=== PATIENT | female | born 1975 | race Caucasian/White ===

== ENCOUNTER 2019-11-02 14:21 | Outpatient (CLI) | payer OTHER, SELFPAY ==
--- NOTE | ~2019-11-02 | MM_ITS ---
EXAMINATION: MM screening willi BI w elsie HISTORY: Screening mammogram TECHNIQUE: Craniocaudal and mediolateral oblique 3-D tomosynthesis images were obtained and synthetic 2-D images were generated. CAD analysis was submitted and interpreted. COMPARISON: 09/27/2018, 09/24/2017, 09/17/2016 bilateral digital screening mammogram examinations BREAST PARENCHYMAL COMPOSITION: There are scattered areas of fibroglandular density. FINDINGS: There is no evidence of suspicious mass, calcification, or architectural distortion to sugg est malignancy in either breast. There has been no suspicious interval change. IMPRESSION: 1. No mammographic evidence of malignancy. 2. Recommend routine screening mammography in one year. BI-RADS Category 1: Negative Reviewed, dictated and finalized at location A.
== END 2019-11-02 14:22 | disposition home or self-care (01) ==
LOC: ANHIMG 14:25
PROVIDERS: PCP Physician Assistant; Visit Provider Obstetrics & Gynecology
DX: Z12.31 Encounter for screening mammogram for malignant neoplasm of breast (principal)
CPT/HCPCS: 77063; 77067

== ENCOUNTER → 2019-12-20 12:38 | Outpatient (CLI) | payer OTHER, SELFPAY ==
--- NOTE | ~2019-12-20 | US_ITS ---
EXAMINATION: US renal BI EXAM DATE: 12/20/2019 13:04 INDICATION: Serum creatinine raised . TECHNIQUE: Multiple grayscale and Doppler images of the kidneys were obtained (by a technologist who performed the scan) and subsequently reviewed. There is no prior study for comparison. FINDINGS: Right kidney: There is normal contour and echogenicity. It measures 10.0 x 4.2 x 5.3 centimeters. T here are no focal renal lesions identified. There is no hydronephrosis. Left kidney: There is normal contour and echogenicity. It measures 9.4 x 5.4 x 3.7 centimeters. The re are no focal renal lesions identified. There is no hydronephrosis. Bladder unremarkable. Incidental note made of cholelithiasis. IMPRESSION: 1. Sonographically unremarkable kidneys. 2. Cholelithiasis. Reviewed, dictated and finalized at location B. O PRESENTATION OPERATOR
== END ==
PROVIDERS: PCP Physician Assistant; Visit Provider Physician Assistant
DX: R79.89 Other specified abnormal findings of blood chemistry (principal); K80.20 Calculus of gallbladder without cholecystitis without obstruction
CPT/HCPCS: 76775

== ENCOUNTER 2020-09-18 17:49 | Emergency (ER) | payer OTHER, SELFPAY ==
[2020-09-18 17:57] VITALS: BP 149/95; PULSE 86; RESP 16; TEMP 36.8; O2SAT 100
--- NOTE | 2020-09-18 18:37 | ED.GENADULT ---
HPI - General Adult General Chief complaint: Wound/Laceration Stated complaint: lt foot pain Time Seen by Provider: 09/18/20 18:37 Source: patient and RN notes reviewed Mode of arrival: ambulatory Limitations: no limitations and clinical condition History of Present Illness HPI narrative: 45-year-old female presents with complaints of a puncture wound to the left foot with redness, tenderness, and swelling to the area for the past 2 days. Pippa reports stepping on a nail on September 16 and increasing redness and swelling to the left foot. Peroxide and antiseptic soap without relief relief. ?Denies drainage. ?No streaking. ?No numbness or tingling, or loss of mobility. ?Exacerbating factors consist of applying weight and palpation of area. ?Denies fever or chills. ?Denies nausea, vomiting, and abdominal pain. ?Tolerating liquids well. LMP 2 months ago, premenopausal. Remains active. ?Last tetanus unknown will be updated today. ?The patient reports she has not been diagnosed with COVID-19. ?The patient reports she received 2 Pfizer COVID-19 vaccines. ?The patient reports she is not waiting for the results of a COVID-19 lab test. ?The patient reports she does not have weakness, fatigue, or myalgia. ?The patient reports she does not have a new or worsening cough or shortness of breath. ?The patient reports she does not have any rhinorrhea, congestion, loss of taste, sore throat, and diarrhea. ?Denies recent traveling. ?Denies concerns for COVID-19 or exposures. At this time, the patient is not suspected of having COVID-19. Some parts of this dictation were generated by voice recognition software and may contain typographical and/or grammatical inaccuracies. Related Data Home Medications Medication Instructions Recorded Confirmed buspirone 5 mg tablet 5 mg PO BID 11/07/19 11/08/19 cetirizine 10 mg capsule 10 mg PO DAILY 11/07/19 11/08/19 escitalopram oxalate 5 mg tablet 5 mg PO DAILY 11/07/19 11/08/19 famotidine 40 mg tablet 40 mg PO DAILY 11/07/19 11/08/19 Allergies Allergy/AdvReac Type Severity Reaction Status Date / Time naproxen Allergy Unknown Unknown Verified 11/07/19 16:06 Review of Systems Review of Systems: CONSTITUTIONAL: Denies fever, chills, sweats. EYES: Denies visual changes, redness, discharge. ENT: Denies rhinorrhea, congestion, sore throat, otalgia. CARDIOVASCULAR: Denies chest pain, palpitations, edema. RESPIRATORY: Denies dyspnea, wheezing, cough. GASTROINTESTINAL: Denies abdominal pain, nausea, vomiting, diarrhea. SKIN: Complaints of puncture site to LT foot with redness, tenderness, and swelling. Denies drainage. MUSCULOSKELETAL: Denies acute back pain, joint pain, or myalgia. NEUROLOGIC: Denies numbness or focal weakness. PSYCHIATRIC: Denies anxiety or depression. All other systems reviewed & are unremarkable except as noted in HPI and below. [facility] Past Medical History Medical History (Updated 09/19/20 @ 00:01 by Daniella Francois) Anxiety Depression History of gastroesophageal reflux (GERD) Surgical History Surgical History History of dilation and curettage Hx of tonsillectomy Previous section x 2 Family History Family History Father Hypertension Family history of elevated blood lipids Family history of diabetes mellitus in first degree relative Mother Hypertension Grandparent Family history of malignant neoplasm of male breast, Onset Age: 86 Family history of coronary artery disease, Onset Age: 86 Diabetes mellitus Other Cerebrovascular accident Social History Social History (Updated 09/18/20 @ 18:52 by TUAN Jansen) Smoking status: Former smoker Tobacco type: cigarettes Second hand tobacco smoke exposure: No Alcohol intake: current Substance use: never Substance use type: does not use Living arrangements: with famil
[2020-09-18] MEDS: TETANUS,DIPHTHERIA,AC PERTUSSIS ADULT (0.5 ML) BOOSTRIX IM (18:51)
== END 2020-09-18 19:01 | disposition home or self-care (01) ==
PROVIDERS: Emergency Provider Nurse Practitioner Family; PCP Physician Assistant
DX: L08.9 Local infection of the skin and subcutaneous tissue, unspecified (principal); S91.332A Puncture wound without foreign body, left foot, initial encounter; W45.0XXA Nail entering through skin, initial encounter; Z23 Encounter for immunization; F41.9 Anxiety disorder, unspecified; F32.9 Major depressive disorder, single episode, unspecified; K21.9 Gastro-esophageal reflux disease without esophagitis; Z87.891 Personal history of nicotine dependence
CPT/HCPCS: 90471; 90715; 99213; G0463

== ENCOUNTER 2020-09-29 10:55 | Emergency (ER) | payer OTHER, SELFPAY ==
[2020-09-29 11:01] VITALS: BP 147/94; PULSE 76; RESP 16; TEMP 36.7; O2SAT 100
--- NOTE | 2020-09-29 11:41 | ED.SKABFB ---
HPI - Skin/Abscess/Foreign Bdy General Chief complaint: Wound/Laceration Stated complaint: wasp sting Time Seen by Provider: 09/29/20 11:20 Source: patient, RN notes reviewed and old records reviewed Mode of arrival: ambulatory Limitations: no limitations History of Present Illness HPI narrative: 45 year old female who presents to express care with complaints of wasp sting which happened yesterday to her left dorsal index finger with noted swelling from index and 2nd finger into the dorsal aspect of her left hand. with discomfort and itching. Patient states that se has a burning sensation and itching to her hand and has been using ice and Benadryl orally and topically to her left hand for the itching. Patient reports that her hand feels tight from the swelling but has full ROM noted with strong left radial pulse present. MD complaint: insect bite/sting Onset (ago): day(s) (1) Location: L hand Severity: moderate Severity scale (1-10): 7 Quality: burning, pruritic and other (swelling) Related Data Home Medications Medication Instructions Recorded Confirmed cetirizine 10 mg capsule 10 mg PO DAILY 11/07/19 09/29/20 escitalopram oxalate 5 mg tablet 5 mg PO DAILY 11/07/19 09/29/20 famotidine 40 mg tablet 40 mg PO DAILY 11/07/19 09/29/20 atorvastatin 20 mg PO DAILY 09/29/20 09/29/20 Allergies Allergy/AdvReac Type Severity Reaction Status Date / Time naproxen Allergy Unknown Unknown Verified 09/29/20 11:02 Review of Systems Review of Systems: CONSTITUTIONAL: Denies fever, chills, or sweats. EYES: Denies visual changes, redness, or discharge. ENT: Denies rhinorrhea, congestion, sore throat, or otalgia. CARDIOVASCULAR: Denies chest pain, palpitations, or edema. RESPIRATORY: Denies cough or dyspnea. GASTROINTESTINAL: Denies abdominal pain, nausea, vomiting, or diarrhea. GENITOURINARY: Denies dysuria or hematuria. SKIN:Positive for swelling and redness to dorsal left hand and left index finger with itching. MUSCULOSKELETAL: Denies back pain, joint pain, or myalgia. NEUROLOGIC: Denies headache, numbness, or weakness. PSYCHIATRIC: Positive history of anxiety or depression. All systems reviewed & are unremarkable except as noted in HPI and below PMFSH Past Medical History Medical History Anxiety Depression History of gastroesophageal reflux (GERD) Surgical History Surgical History History of dilation and curettage Hx of tonsillectomy Previous section x 2 Family History Family History Father Hypertension Family history of elevated blood lipids Family history of diabetes mellitus in first degree relative Mother Hypertension Grandparent Family history of malignant neoplasm of male breast, Onset Age: 86 Family history of coronary artery disease, Onset Age: 86 Diabetes mellitus Other Cerebrovascular accident Social History Social History Smoking status: Former smoker Tobacco type: cigarettes Second hand tobacco smoke exposure: No Alcohol intake: current Substance use: never Substance use type: does not use Gender identity (if verbalized by the patient): Female Comments At time of signature, agree with nursing past medical, surgical, social and family history. There is no relevant family history pertinent to the presenting complaint Exam Narrative: GENERAL: Well-appearing, well-nourished, and in no acute distress. HEAD: Normocephalic, atraumatic. EYES: PERRLA and EOMI. ENT: Nares clear, no rhinorrhea or epistaxis. Mucous membranes moist. NECK: Supple. no lymphadenopathy CHEST: Clear to auscultation. No respiratory distress. SaO2 100% HEART: Regular rate and rhythm. No murmur heard. Normal peripheral pulses. ABDOMEN: Soft, nontender, nondistended, normal active bowel
== END 2020-09-29 12:00 | disposition home or self-care (01) ==
PROVIDERS: Emergency Provider Registered Nurse; PCP Physician Assistant
DX: T63.461A Toxic effect of venom of wasps, accidental (unintentional), initial encounter (principal); F41.9 Anxiety disorder, unspecified; F32.9 Major depressive disorder, single episode, unspecified; K21.9 Gastro-esophageal reflux disease without esophagitis; Z87.891 Personal history of nicotine dependence
CPT/HCPCS: 99213; G0463

== ENCOUNTER 2020-12-24 16:24 | Emergency (ER) | payer OTHER, SELFPAY ==
--- NOTE | ~2020-12-24 | XR_ITS ---
XR foot LT min 3V 12/24/2020 16:40 INDICATION: Left foot pain PROCEDURE: 4 views left foot COMPARISON: No prior studies for comparison. FINDINGS: Fracture, dislocation or subluxation is not identified. Lisfranc joint intact. The soft tis sues appear within normal limits. No foreign bodies are identified. IMPRESSION: 1: NO ACUTE BONE OR JOINT ABNORMALITY IDENTIFIED. Reviewed, dictated and finalized at location A. VIORAL MEDICAL DIRECTOR
--- NOTE | 2020-12-24 16:26 | ED.LOWEXIN ---
HPI - Extremity Injury (Lower) General Chief Complaint: Extremity Injury, Lower Stated Complaint: lt foot pain Time Seen by Provider: 12/24/20 16:26 Source: patient, RN notes reviewed and old records reviewed Mode of arrival: ambulatory Limitations: no limitations History of Present Illness HPI Narrative: 45-year-old female presents to the [facility] with complaints of left great toe pain since Thursday, 2 days. No treatment prior to arrival. Patient reports wearing a slide on, newer pair of shoes on Thursday. Reports swelling. No bruising, redness or signs of infection noted. full range of motion with sensation intact Shoes on Thursday and the pain started on Thursday. Related Data Home Medications Medication Instructions Recorded Confirmed cetirizine 10 mg capsule 10 mg PO DAILY 11/07/19 12/24/20 escitalopram oxalate 5 mg tablet 5 mg PO DAILY 11/07/19 12/24/20 famotidine 40 mg tablet 40 mg PO DAILY 11/07/19 12/24/20 atorvastatin 20 mg PO DAILY 09/29/20 12/24/20 Allergies Allergy/AdvReac Type Severity Reaction Status Date / Time naproxen Allergy Unknown Unknown Verified 11/19/20 14:49 Review of Systems Review of Systems: All systems reviewed & are unremarkable except as noted in HPI and below Constitutional: Constitutional: Reports no additional constitutional complaints ENT: Reports system reviewed and no additional complaints, except as documented Cardiovascular: Cardiovascular: Reports no additional cardiovascular complaints Respiratory: Respiratory: Reports no additional respiratory complaints Musculoskeletal: Musculoskeletal: Reports as per HPI Comments: Left great toe pain Integumentary/Breasts: Skin/Breast: Reports system reviewed and no additional complaints, except as docu Neurologic: Reports system reviewed and no additional complaints, except as documented Psychiatric: Psychiatric: Reports no additional psychiatric complaints Allergic/Immunologic: Allergic/Immunologic: Reports no additional allergic/immunologic complaints PMFSH Past Medical History Medical History Anxiety Depression History of gastroesophageal reflux (GERD) Surgical History Surgical History History of dilation and curettage Hx of tonsillectomy Previous section x 2 Family History Family History Father Hypertension Family history of elevated blood lipids Family history of diabetes mellitus in first degree relative Mother Hypertension Grandparent Family history of malignant neoplasm of male breast, Onset Age: 86 Family history of coronary artery disease, Onset Age: 86 Diabetes mellitus Other Cerebrovascular accident Social History Social History Smoking status: Former smoker Tobacco type: cigarettes Second hand tobacco smoke exposure: No Alcohol intake: current Substance use: never Substance use type: does not use Gender identity (if verbalized by the patient): Female Sexual Orientation (if Verbalized by the Patient): Straight or Heterosexual Comments At the time of my signature, I reviewed and agree with the nursing past medical, surgical, social, and family history. There is no relevant family history pertinent to the patient complaint. Exam Const: General: healthy appearing, no acute distress and alert Nutritional Appearance: well nourished and obese Orientation/consciousness: patient oriented x3 Limitations: no limitations HENMT: Head: normal to inspection Eyes: Pupils: Equal, round and reactive pupils present Neck: Neck: normal visual inspection, no lymphadenopathy and no meningeal signs Chest: Chest palpation & inspection: normal inspection of the chest Resp: Effort & Inspection: normal respiratory effort Auscultation: clear to auscultation bilaterally Cardio:
[2020-12-24 16:31] VITALS: BP 160/90; PULSE 93; RESP 16; TEMP 37.1; O2SAT 100
[2020-12-24 16:34] VITALS: BP 160/90; PULSE 93; RESP 16; TEMP 37.1; O2SAT 100
== END 2020-12-24 17:04 | disposition home or self-care (01) ==
PROVIDERS: Emergency Provider Nurse Practitioner; PCP Physician Assistant
DX: M79.675 Pain in left toe(s) (principal); Z87.891 Personal history of nicotine dependence; K21.9 Gastro-esophageal reflux disease without esophagitis; F41.9 Anxiety disorder, unspecified; F32.9 Major depressive disorder, single episode, unspecified
CPT/HCPCS: 73630; 99213; G0463

== ENCOUNTER 2021-09-13 08:50 | Outpatient (CLI) | payer OTHER, SELFPAY ==
--- NOTE | ~2021-09-13 | MM_ITS ---
EXAMINATION: MM screening willi BI w elsie HISTORY: Screening mammogram TECHNIQUE: Craniocaudal and mediolateral oblique 3-D tomosynthesis images were obtained and synthetic 2-D images were generated. CAD analysis was submitted and interpreted. COMPARISON: 11/02/2019, 09/27/2018, 09/24/2017 bilateral screening mammogram examinations BREAST PARENCHYMAL COMPOSITION: The breasts are almost entirely fatty. FINDINGS: Stable circumscribed benign-appearing upper outer quadrant left intramammary lymph node. Th ere is no evidence of suspicious mass, calcification, or architectural distortion to suggest malignan cy in either breast. There has been no suspicious interval change. IMPRESSION: 1. No mammographic evidence of malignancy. 2. Recommend routine screening mammography in one year. BI-RADS Category 2: Benign finding(s). Reviewed, dictated and finalized at location B.
== END 2021-09-13 08:51 | disposition home or self-care (01) ==
LOC: ANHIMG 08:56
PROVIDERS: PCP Physician Assistant; Visit Provider Obstetrics & Gynecology
DX: Z12.31 Encounter for screening mammogram for malignant neoplasm of breast (principal)
CPT/HCPCS: 77063; 77067

== ENCOUNTER 2023-05-04 13:07 | Outpatient (CLI) | payer OTHER, SELFPAY ==
--- NOTE | ~2023-05-04 | MM_ITS ---
EXAMINATION: MM screening willi BI w elsie HISTORY: Screening TECHNIQUE: Craniocaudal and mediolateral oblique 3-D tomosynthesis images were obtained and synthetic 2-D images were generated. CAD analysis was submitted and interpreted. COMPARISON: No prior mammogram is available for comparison at this institution. BREAST PARENCHYMAL COMPOSITION: Not Dense: Breast are almost entirely fatty. FINDINGS: There is no evidence of suspicious mass, calcification, or architectural distortion to sugg est malignancy in either breast. There has been no suspicious interval change. IMPRESSION: 1. No mammographic evidence of malignancy. 2. Recommend routine screening mammography in one year. BI-RADS Category 1: Negative Reviewed, dictated and finalized at location A.
== END 2023-05-04 13:08 | disposition home or self-care (01) ==
LOC: ANHIMG 13:10
PROVIDERS: PCP Physician Assistant; Visit Provider Obstetrics & Gynecology
DX: Z12.31 Encounter for screening mammogram for malignant neoplasm of breast (principal)
CPT/HCPCS: 77063; 77067

== ENCOUNTER 2023-08-26 12:58 | Outpatient (CLI) | payer OTHER, SELFPAY ==
--- NOTE | ~2023-08-26 | US_ITS ---
EXAMINATION: US pelvic complete w TV DATE: 08/26/2023 14:10 INDICATION: Postmenopausal bleeding. TECHNIQUE: Multiple transabdominal and transvaginal sonographic images of the pelvis were obtained. COMPARISON: Pelvis ultrasound 05/22/2014 FINDINGS: TRANSABDOMINAL ULTRASOUND: The uterus measures 9.8 x 4.9 x 4.5 cm. There is no free fluid in the pelvis. TRANSVAGINAL ULTRASOUND: The endometrial complex measures 7 mm in thickness. There are nabothian cysts in the cervix. The righ t ovary measures 3.0 x 2.3 x 2.3 cm. The left ovary is not visualized. IMPRESSION: 1. Thickened endometrial complex. The differential diagnosis includes endometrial hyperplasia, polyp, and carcinoma. Consider biopsy. Reviewed, dictated and finalized at location E. IMPRESSION: 1. Thickened endometrial complex. The differential diagnosis includes endometri al hyperplasia, polyp, and carcinoma. Consider biopsy.
== END 2023-08-26 12:59 | disposition home or self-care (01) ==
PROVIDERS: PCP Physician Assistant; Visit Provider Obstetrics & Gynecology
DX: N95.0 Postmenopausal bleeding (principal)
CPT/HCPCS: 76830; 76856

== ENCOUNTER 2023-10-30 08:12 | Outpatient (CLI) | payer OTHER, SELFPAY ==
--- NOTE | 2023-10-30 | EST_ITS ---
Patient Info Name: Pippa Prabhakar Age: 48 years : 1975 Gender: Female Ht: 63 in Wt: 240 lbs BSA: 2.26 m2 HR: 79 bpm BP: 117 / 64 mmHg Exam Date: 10/30/2023 10:00 AM Exam Location: Echo Lab Patient Status: Outpatient Admit Date: 10/30/2023 Staff Ordering Physician: CathyIrene PA-C Attending Provider: CathyIrene PA-C Exercise Technologist: Heena Callaway RDCS Nurse: Susanne Pappas APN Exam Type: CA stress test treadmill Study Info A treadmill exercise stress test was performed. Summary 1. Sinus rhythm with low QRS voltage. 2. No ischemic ST or T-wave abnormalities noted. 3. Graded exercise test to 85% of age predicted maximum heart rate clinically and electrocardiographically negative. 4. Average functional capacity. Protocol: Jose Stress ECG Details Stage: REST Duration (min): 1 min : 46 sec Speed (mph): 0.0 Grade (%): 0 HR (bpm): 81 SBP (mmHg): 117 DBP (mmHg): 64 METS: --- Stage: REST Duration (min): 12 min : 40 sec Speed (mph): 0.0 Grade (%): 0 HR (bpm): 81 SBP (mmHg): 117 DBP (mmHg): 64 METS: --- Stage: STAGE 1 Duration (min): 1 min : 0 sec Speed (mph): 1.7 Grade (%): 10 HR (bpm): 110 SBP (mmHg): 117 DBP (mmHg): 64 METS: --- Stage: STAGE 1 Duration (min): 2 min : 0 sec Speed (mph): 1.7 Grade (%): 10 HR (bpm): 117 SBP (mmHg): 117 DBP (mmHg): 64 METS: --- Stage: STAGE 1 Duration (min): 3 min : 0 sec Speed (mph): 1.7 Grade (%): 10 HR (bpm): 119 SBP (mmHg): 123 DBP (mmHg): 69 METS: --- Stage: STAGE 2 Duration (min): 1 min : 0 sec Speed (mph): 2.5 Grade (%): 12 HR (bpm): 124 SBP (mmHg): 123 DBP (mmHg): 69 METS: --- Stage: STAGE 2 Duration (min): 2 min : 0 sec Speed (mph): 2.5 Grade (%): 12 HR (bpm): 130 SBP (mmHg): 144 DBP (mmHg): 76 METS: --- Stage: STAGE 2 Duration (min): 3 min : 0 sec Speed (mph): 2.5 Grade (%): 12 HR (bpm): 129 SBP (mmHg): 144 DBP (mmHg): 76 METS: --- Stage: STAGE 3 Duration (min): 1 min : 0 sec Speed (mph): 3.4 Grade (%): 14 HR (bpm): 143 SBP (mmHg): 144 DBP (mmHg): 76 METS: --- Stage: STAGE 3 Duration (min): 1 min : 49 sec Speed (mph): 0.0 Grade (%): 0 HR (bpm): 136 SBP (mmHg): 144 DBP (mmHg): 76 METS: --- Stage: RECOVERY Duration (min): 0 min : 10 sec Speed (mph): 0.0 Grade (%): 0 HR (bpm): 130 SBP (mmHg): 144 DBP (mmHg): 76 METS: --- Stage: RECOVERY Duration (min): 1 min : 10 sec Speed (mph): 0.0 Grade (%): 0 HR (bpm): 100 SBP (mmHg): 129 DBP (mmHg): 63 METS: --- Stage: RECOVERY Duration (min): 2 min : 10 sec Speed (mph): 0.0 Grade (%): 0 HR (bpm): 93 SBP (mmHg): 129 DBP (mmHg): 63 METS: --- Stage: RECOVERY Duration (min): 3 min : 10 sec Speed (mph): 0.0 Grade (%): 0 HR (bpm): 89
--- NOTE | 2023-10-30 | ECHO_ITS ---
Patient Info Name: Pippa Prabhakar Age: 48 years : 1975 Gender: Female Ht: 63 in Wt: 240 lbs BSA: 2.26 m2 HR: 77 bpm BP: 140 / 97 mmHg Technical Quality: Fair Exam Date: 10/30/2023 8:54 AM Exam Location: Echo Lab Patient Status: Outpatient Admit Date: 10/30/2023 Staff Ordering Physician: CathyIrene PA-C Barrel Tester And Drainer: Indira Durbin RDCS Attending Provider: CathyIrene PA-C Exam Type: CA echo doppler color flow Study Info Indications R06.09 - Other forms of dyspnea Complete two-dimensional, color flow and Doppler transthoracic echocardiogram is performed. Strain analysis performed. Summary 1. Complete two-dimensional, color flow and Doppler transthoracic echocardiogram is performed. 2. Left ventricular chamber dimension is normal. 3. Left ventricular systolic function is normal, estimated at 60-65%. 4. The left ventricular diastolic function is grade II diastolic dysfunction. 5. E/e' 8 is minimally elevated. 6. Global longitudinal strain is abnormal at -15.4%. 7. There is trace tricuspid valve regurgitation. 8. No pulmonary hypertension, estimated pulmonary arterial systolic pressure is 32 mmHg. Left Ventricle E/e' 8 is minimally elevated. Global longitudinal strain is abnormal at -15.4%. Left ventricular chamber dimension is normal. Left ventricular systolic function is normal, estimated at 60-65%. The left ventricular diastolic function is grade II diastolic dysfunction. Right Ventricle Right ventricular systolic function is normal and with normal TAPSE 1.9 cm. Right ventricular chamber dimension is normal. Left Atria Left atrial chamber dimension is normal. Right Atria Right atrial chamber dimension is normal. Aortic Valve The aortic valve is trileaflet. There is no aortic valve stenosis. There is no aortic valve regurgitation. Pulmonic Valve There is no pulmonic regurgitation. Mitral Valve There is no mitral valve stenosis. There is no mitral valve regurgitation. Tricuspid Valve There is trace tricuspid valve regurgitation. No pulmonary hypertension, estimated pulmonary arterial systolic pressure is 32 mmHg. Pericardium/Pleural There is no pericardial effusion. Inferior Vena Cava Normal inferior vena cava with >50% collapse upon inspiration consistent with normal right atrial pressure, 5 mmHg. Aorta The aortic root size at the sinus of Valsalva is normal. Left Ventricular Outflow Tract Name Value Normal LVOT 2D LVOT Diameter 1.9 cm LVOT Doppler LVOT Peak Gradient 5 mmHg LVOT Mean Gradient 3 mmHg LVOT VTI 22 cm LVOT VTI/AV VTI Ratio 0.9 LVOT Stroke Volume 64 ml LVOT CO 5.2 l/min LVOT CI 2.3 l/min/m2 Pulmonic Valve Name Value Normal RVOT Doppler RVOT Peak Gradient 2 mmHg
--- NOTE | ~2023-10-30 | XR_ITS ---
EXAMINATION: XR chest 2V DATE: 10/30/2023 09:29 INDICATION: Shortness of breath. Hypertension. TECHNIQUE: PA and lateral views of the chest were obtained. COMPARISON: None FINDINGS: The lungs are clear with no focal airspace opacities, pulmonary edema, pleural effusion or pneumothor ax. The cardiomediastinal silhouette is normal. Visualized bones and soft tissues are unremarkable. IMPRESSION: 1. Normal chest radiograph. Reviewed, dictated and finalized at location B. IMPRESSION: 1. Normal chest radiograph.
== END 2023-10-30 08:13 | disposition home or self-care (01) ==
PROVIDERS: PCP Physician Assistant; Visit Provider Physician Assistant
DX: R06.09 Other forms of dyspnea (principal)
CPT/HCPCS: 71046; 93017; 93306

== ENCOUNTER 2023-11-30 09:16 | Outpatient (CLI) | payer OTHER, SELFPAY ==
--- NOTE | 2023-12-23 12:11 | P.SLEEP_ITS ---
Sleep Study - Home Unattended Date of Study: 11/30/23 Ordering Provider: Irene Morgan, PACindy Interpreting Provider: Minnie Spencer, DO Home Sleep Study Type: Watch PAT Height: 1.6 m Weight: 111.13 kg Body Mass Index: 43.4 Neck Circumference (inches): 15.5 [place]: 11 Reason for Sleep Study Snoring, daytime hypersomnia Sleep History The patient is a 48-year-old female that had a sleep study ordered by her [facility] for evaluation of sleep apnea. The patient admits to loud snoring, excessive daytime sleepiness and trouble maintaining sleep. The patient denies having disruptions and breathing while asleep. She denies choking gasping while asleep. She does admit to having trouble breathing on her back. She does admit to waking up in the morning with headache. She does admit to having a dry or sore mouth/ throat in the morning. She denies nocturnal heartburn. She admits to urinating twice per night. She denies having difficulty falling asleep. She denies having difficulty returning to sleep if she wakes up during the night. She denies waking up too early without alarm. She does use a hypnotic or sedative. She denies feeling anxious about sleep. She does feel tired or fatigued during the day. She does feel unrefreshed in the morning. She does have the urge to fall asleep during the day. She does feel drowsy while driving. She denies sleep paralysis, cataplexy and hypnagogic / hypnopompic hallucinations. She admits to clenching or grinding her teeth during the night. She does admit to kicking or jerking her legs excessively at night. She does have a restless feelings in her legs that improves with activity but gets worse with rest. The rest was feeling is accompanied by the urge to move her legs. The restless feeling only occurs in the evening or the night. She goes to bed at 9:00 p.m. on work days and at 10:30 p.m. on the weekends. It takes her 30 minutes to fall asleep on weekdays and 45 minutes to fall asleep on the weekends. She typically gets 10 hours of sleep per night. She states her sleep is much more restorative on her days off. She denies taking any plan naps. She states that she does act out her dreams or has violent dreaming. She denies sleep walking as an adult or as a child. She consumes 1-2 caffeinated beverages per day. She consumes 1 glass of an alcoholic beverage 1-2 nights per week. She denies exercising on a regular basis. She denies tobacco use. PMFSH Past Medical History Medical History Anxiety Depression History of gastroesophageal reflux (GERD) Surgical History Surgical History History of dilation and curettage Hx of tonsillectomy Previous section x 2 Family History Family History Father Hypertension Family history of elevated blood lipids Family history of diabetes mellitus in first degree relative Mother Hypertension Grandparent Family history of malignant neoplasm of male breast, Onset Age: 86 Family history of coronary artery disease, Onset Age: 86 Diabetes mellitus Other Cerebrovascular accident Social History Social History Smoking status: Former smoker Tobacco type: cigarettes Second hand tobacco smoke exposure: No Alcohol intake: current Substance use: never Substance use type: does not use Do You Feel Safe in your Home?: Yes Lack of Transportation: No Lack of Food: Never True Current Housing: I Have Housing Concerned About Future Housing: No Difficulty Paying Gas/Electric Bills: No Difficulty Paying for Meds: No Currently Unemployed: No Education: Bachelor's Degree Difficulty w/ Childcare or Family Care: No Living arrangements: with family Occupation/Education: occupation Gender identity (if verbalized by the patient): Female Sexual Orientation (if Verbalized by the Patient): Straight or Heterosexual Medications Home Medications Medication Instructions Recorded Confirmed Type cetirizine 10 mg capsule (Zyrtec) 10 mg PO DAILY 11/07/19 09/01/23 History escitalopram oxalate 5 mg tablet 5 mg PO DAILY 11/07/19 09/01/23 History (Lexapro) famotidine 40 mg tablet 40 mg PO DAILY 09/21/20 07/16/24 History atorvastatin 20 mg tablet 20 mg PO DAILY 09/29/20 09/01/23 History conjugated estrogens 0.625 mg/gram 0.625 mg vaginal 2XW #30 grams 04/07/23 09/01/23 Rx vaginal cream (Premarin) progesterone micronized 100 mg 100 mg PO QHS #90 caps 09/28/23 Rx capsule Sleep Procedure The sleep study was completed using MyParichayPAT a technically adequate device with seven channels: peripheral arterial tone, actigraphy, body position, snore, respiratory movement, pulse oximetry, sleep staging, and heart rate. Prior to using the device, the patient received verbal and written instructions for its application and was provided with the help desk phone number for additional telephonic instruction with 24-hour availability of qualified personnel to answer questions. The study was scored using CMS guidelines. Sleep Architecture The total recording time is 9 hrs, 59 min. The total sleep time is 8 hrs, 50 min. Sleep latency is 21 minutes. REM latency is 108 minutes. The patient had 14 episodes of waking. Sleep architecture shows 13.8% deep sleep, 59.7% light sleep, and (as % Total Sleep Time) showed NREM (Light 59.7%; Deep 13.8%), and a 26.6% stage REM. The patient spent 51.1% of total sleep time in the supine position. Sleep efficiency was 88.48. Respiratory Analysis The overall AHI (pAHI 4%:) is 26.7. The central AHI is 7.9. The AHI was 19.0 in NREM and 48.0 in REM sleep. The AHI was 29.9 in Supine and 23.3 in Non-supine sleep. Percent of Jeff Thomas respirations is 0.0. Oximetry Data The oxygen desaturation index (DAVE 4%:) is 26.4. The mean saturation is 94%, and the lowest saturation is 75%. Time spent with saturation < 88% is 6.3 minutes. Snoring Profile Snoring average intensity is 46 dB. The patient snored above 45 decibels for 197.1 minutes, 37.2% of sleep time. Cardiac Profile The average pulse rate is 77 beats per minutes. The lowest pulse rate is 61 bpm. The highest pulse rate reported is 122 bpm. Atrial fibrillation was not detected. Premature beats occur <0.1 per minute. Assessment and Plan Assessment and Plan (1) SHARIF (obstructive sleep apnea): Code(s): G47.33 - Obstructive sleep apnea (adult) (pediatric) Status: Acute Assessment and Plan: The patient had an overall AHI of 26.7 with desaturation down to 75%. This is consistent with moderate sleep apnea. The patient had a central apnea index of 7.9, which is elevated (normal < 5). The patient's elevated central apnea index, she is not a candidate for auto PAP. AutoPAP can increase the frequency and severity central apneas. I recommend that the patient have a CPAP titration study with the use of a hypnotic (Lunesta 2-3 mg or Ambien 5-10 mg) to ensure we obtain enough sleep data and find an optimal pressure. The patient had an echocardiogram done in October 2023 that showed a normal ejection fraction. No further cardiac workup is needed for the evaluation of her elevated central apnea index. The patient mentioned in her sleep history that she acts on her dreams. The patient needs to be evaluated further for dream enactment behavior. (2) Restless legs syndrome: Code(s): G25.81 - Restless legs syndrome Status: Acute Assessment and Plan: The patient's sleep history is somewhat suggestive of Restless Leg Syndrome. I recommend that the patient have a serum ferritin drawn for evaluation of iron deficiency anemia. If the patient has a serum ferritin less than 75 ng/mL, I recommend starting a daily iron supplement and a Vitamin C supplement for better absorption. If the serum ferritin is greater than 75 ng/mL, I recommend starting a dopamine agonist and titrating the dose until symptoms resolve. There are nonpharmacological methods to treat limb movements including daily exercise, stretching calf muscles before bed, avoiding excessive amounts of caffeine and alcohol, vitamin B supplementation, magnesium lotion massaged into legs before bed, and use of a weighted blanket. Data The data obtained during this sleep study is adequate for interpretation. Certification This sleep study has been reviewed by a board certified sleep medicine alicja acuna.
[2023-12-23 12:12] VITALS: BMI 43.4
== END 2023-12-01 14:49 | disposition home or self-care (01) ==
LOC: ANHCSM 09:17
PROVIDERS: PCP Physician Assistant; Visit Provider Physician Assistant
DX: G47.30 Sleep apnea, unspecified (principal); G47.33 Obstructive sleep apnea (adult) (pediatric); G25.81 Restless legs syndrome
CPT/HCPCS: 95800

== ENCOUNTER 2024-02-12 09:12 | Outpatient (CLI) | payer OTHER, SELFPAY ==
--- NOTE | 2024-03-08 13:17 | P.SLEEP_ITS ---
Sleep Study Date of Study: 02/12/24 Ordering Provider: rIene Morgan, ALCIRA Interpreting Physician: Minnie Spencer DO Sleep Study Type: CPAP Titration Height: 1.6 m Weight: 111.13 kg Body Mass Index: 43.4 Neck Circumference (inches): 15.5 [place]: 11 Reason for Sleep Study WatchPAT home sleep test on 11/30/2023 showed overall AHI of 26.7 with desaturation down to 75%. Central apnea index of 7.9. Sleep History The patient is a 48-year-old female that had a sleep study ordered by her primary care for evaluation of sleep apnea. The patient admits to loud snoring, excessive daytime sleepiness and trouble maintaining sleep. The patient denies having disruptions and breathing while asleep. She denies choking gasping while asleep. She does admit to having trouble breathing on her back. She does admit to waking up in the morning with headache. She does admit to having a dry or sore mouth/ throat in the morning. She denies nocturnal heartburn. She admits to urinating twice per night. She denies having difficulty falling asleep. She denies having difficulty returning to sleep if she wakes up during the night. She denies waking up too early without alarm. She does use a hypnotic or sedative. She denies feeling anxious about sleep. She does feel tired or fatigued during the day. She does feel unrefreshed in the morning. She does have the urge to fall asleep during the day. She does feel drowsy while driving. She denies sleep paralysis, cataplexy and hypnagogic / hypnopompic hallucinations. She admits to clenching or grinding her teeth during the night. She does admit to kicking or jerking her legs excessively at night. She does have a restless feelings in her legs that improves with activity but gets worse with rest. The rest was feeling is accompanied by the urge to move her legs. The restless feeling only occurs in the evening or the night. She goes to bed at 9:00 p.m. on work days and at 10:30 p.m. on the weekends. It takes her 30 minutes to fall asleep on weekdays and 45 minutes to fall asleep on the weekends. She typically gets 10 hours of sleep per night. She states her sleep is much more restorative on her days off. She denies taking any plan naps. She states that she does act out her dreams or has violent dreaming. She denies sleep walking as an adult or as a child. She consumes 1-2 caffeinated beverages per day. She consumes 1 glass of an alcoholic beverage 1-2 nights per week. She denies exercising on a regular basis. She denies tobacco use. PMFSH Past Medical History Medical History Depression History of gastroesophageal reflux (GERD) Anxiety Surgical History Surgical History Hx of tonsillectomy History of dilation and curettage Previous section x 2 Family History Family History Father Hypertension Family history of elevated blood lipids Family history of diabetes mellitus in first degree relative Mother Hypertension Grandparent Family history of malignant neoplasm of male breast, Onset Age: 86 Family history of coronary artery disease, Onset Age: 86 Diabetes mellitus Other Cerebrovascular accident Social History Social History Smoking status: Former smoker Tobacco type: cigarettes Second hand tobacco smoke exposure: No Alcohol intake: current Substance use: never Substance use type: does not use Do You Feel Safe in your Home?: Yes Lack of Transportation: No Lack of Food: Never True Current Housing: I Have Housing Concerned About Future Housing: No Difficulty Paying Gas/Electric Bills: No Difficulty Paying for Meds: No Currently Unemployed: No Education: Bachelor's Degree Difficulty w/ Childcare or Family Care: No Living arrangements: with family Occupation/Education: occupation Gender identity (if verbalized by the patient): Female Sexual Orientation (if Verbalized by the Patient): Straight or Heterosexual Medications Home Medications ?Medication ?Instructions ?Recorded ?Confirmed ?Type cetirizine 10 mg capsule (Zyrtec) 10 mg PO DAILY 11/07/19 09/01/23 History escitalopram oxalate 5 mg tablet 5 mg PO DAILY 11/07/19 09/01/23 History (Lexapro) famotidine 40 mg tablet 40 mg PO DAILY 11/07/19 09/01/23 History atorvastatin 20 mg tablet 20 mg PO DAILY 09/29/20 09/01/23 History conjugated estrogens 0.625 mg/gram 0.625 mg vaginal 2XW #30 grams 04/07/23 09/01/23 Rx vaginal cream (Premarin) progesterone micronized 100 mg 100 mg PO QHS #90 caps 09/28/23 Rx capsule Sleep Procedure A full night CPAP Titration using the [employer] multi-channel system recorded the standard physiologic parameters including EEG, EOG, submentalis EMG, anterior tibialis EMG, EKG, body position, nasal and oral airflow using nasal pressure sensor and thermistor.? Respiratory parameters of chest and abdominal movements were recorded with Respiratory Inductance Plethysmography belts. Oxygen saturation was recorded by pulse oximetry. Video monitoring was also performed. Sleep stages, periodic limb movements, and EEG arousals were scored in 30 second epochs according to the criteria of the AASM Scoring Manual. The Apnea-Hypopnea Index was calculated using CMS guidelines for definition of hypopnea with 4% O2 desaturations while scoring respiratory events. Sleep Architecture The total recording time was 489.2 minutes.? The total sleep time was 341.5 minutes. Sleep latency was 40.5 minutes. REM latency was 401.0 minutes. Sleep efficiency was 69.8%. The patient had 34 awakenings for an awakening index of 6.0. Wake after Sleep Onset time was 105.5 minutes. The patient spent 25.0 minutes, 7.3% of total sleep time in Stage N1. The patient spent 204.5 minutes, 59.9% in Stage N2. The patient spent 71.0 minutes, 20.8% in Stage N3. The patien t spent 41.0 minutes, 12.0% in Stage REM. Respiratory Analysis The patient had 14 hypopneas, - obstructive apneas, 1 mixed apneas, and 1 central apneas for an overall Apnea Hypopnea Index of 2.8 events per hour. The REM Apnea Hypopnea Index was 2.9. The NREM Apnea Hypopnea Index was 2.8. The patient had a Central Apnea Hypopnea Index of 0.2. There was no evidence of Jeff-Thomas Respirations. The patient was started on CPAP 5 cm H2O and titrated to CPAP 9 cm H2O due to hypopneas. The patient was able to fall asleep starting on CPAP 5 cm H2O. The patient was able to achieve REM sleep starting on CPAP 9 cm H2O. The patient was able to achieve a residual AHI less than 5 with both NREM and REM sleep on the final pressure. On CPAP 9 cm H2O, the patient spent 187 minutes in NREM and 41 minutes in REM with 1 central apnea and 13 hypopneas, resulting in an AHI of 3.7. The patient had a sleep efficiency of 77.8% on this pressure setting. Arousals There were 67 total arousals for an arousal index of 11.8. There were 35 spontaneous arousals for an index of 6.1. ?There were 5 arousals due to r espiratory events for an index of 0.9. There were 24 arousals due to periodic limb movements for an index of 4.2.? There were 8 arousals due to isolated limb movements for an index of 1.4. Periodic Limb Movements The patient had 15 isolated limb movements with an index of 2.6. The patient had 243 periodic limb movements with index of 42.7, which is elevated (normal < 15). Patient had a total of 258 limb movements with a total limb movement index of 45.3. Oximetry Data The patient had an average oxygen saturation of 96.2% in sleep with a minimum oxygen saturation of 86.0% and a maximum oxygen saturation of 99.0%. The patient had 23 oxygen desaturations that were 4% or greater resulting in an Oxygen Desaturation Index of 4.0.? The patient spent 0.2 minutes of total sleep time with an oxygen saturation below 88%. Snoring Profile Mild snoring was present in the beginning of the study. Snoring resolved once the patient was titrated to 9 cm H2O. Cardiac Profile The EKG showed normal sinus rhythm. No arrhythmias or premature beats were seen. The patient had an average pulse rate of 70.7 bpm with a minimum pulse rate of 63.0 bpm and a maximum pulse rate of 83.0 bpm. ? EEG Profile No signs of seizure activity seen. Assessment and Plan Assessment and Plan (1) SHARIF (obstructive sleep apnea): Code(s): G47.33 - Obstructive sleep apnea (adult) (pediatric) Status: Acute Assessment and Plan: The patient was started on CPAP 5 cm H2O and titrated to CPAP 9 cm H2O due to hypopneas. The patient's sleep apnea resolved on the final pressure. I recommend that the patient be prescribed CPAP 9 cm H2O, size small ResMed N30i nasal mask, CPAP filters/tubing and heated humidity. This should be used with all episodes of sleep.? Compliance should be reviewed within 31-90 days of starting therapy for usage greater than 4 hours per night greater than 70% of the nights. The patient should be asked about symptoms such as?excessive daytime sleepiness, quality of sleep, decreased nocturia, increased?mental functioning such as memory, mood, and concentration. (2) PLMD (periodic limb movement disorder): Code(s): G47.61 - Periodic limb movement disorder Status: Acute Assessment and Plan: The patient had a significant number of limb movements during the study with the majority being periodic in nature. Approximately 10% of the periodic limb movements caused arousals in the patient's sleep. The patient's sleep history is consistent with Restless Leg Syndrome. I recommend that the patient have a serum ferritin drawn for evaluation of iron deficiency anemia. If the patient has a serum ferritin less than 75 ng/mL, I recommend starting a daily iron supplement and a Vitamin C supplement for better absorption. If the serum ferritin is greater than 75 ng/mL, I recommend starting a dopamine agonist and titrating the dose until symptoms resolve. There are nonpharmacological methods to treat limb movements including daily exercise, stretching calf muscles before bed, avoiding excessive amounts of caffeine and alcohol, vitamin B supplementation, magnesium lotion massaged into legs before bed, and use of a weighted blanket. Data The data obtained during this sleep study is adequate for interpretation. Certification This sleep study has been reviewed by a board certified sleep medicine physician.
[2024-03-08 20:44] VITALS: BMI 43.4
== END 2024-02-13 06:23 | disposition home or self-care (01) ==
PROVIDERS: PCP Physician Assistant; Visit Provider Physician Assistant
DX: G47.33 Obstructive sleep apnea (adult) (pediatric) (principal)
CPT/HCPCS: 95811

== ENCOUNTER 2024-09-13 11:34 | Outpatient (CLI) | payer OTHER, SELFPAY ==
--- NOTE | ~2024-09-13 | US_ITS ---
EXAMINATION: US pelvic complete w TV INDICATION: Left lower quadrant pain. Postmenopausal. Comparison:No prior studies for comparison. TECHNIQUE: Multiple transabdominal and endovaginal sonographic images of the pelvis performed. FINDINGS: The uterus measures 8.3 x 3.8 x 4.1 cm. Uterine echotexture is heterogeneous with probable underlying fibroid changes, although no discrete mass identified for measurement. There are multiple nabothian cysts. The endometrial complex measures 7 mm. The right ovary measures 3.4 x 2.7 x 2.9 cm. Left ovary not visualized. There is no free fluid in the pelvis. There are no abnormal masses seen on either side. IMPRESSION: 1. Heterogeneous uterine echotexture with possible underlying fibroid changes. No discrete mass ident ified for measurement. 2: Thickened endomtrial complex. The differential diagnosis includes endometrial hyperplasia, polyp and carcinoma. Biopsy is recommended. Reviewed, dictated and finalized at location A. IMPRESSION: 1. Heterogeneous uterine echotexture with possible underlying fibroid changes. No discrete mass identified for measurement. 2: Thickened endomtrial complex. The differential diagnosis includes endometr ial hyperplasia, polyp and carcinoma. Biopsy is recommended.
--- OUTSIDE RECORDS SUMMARY | 2024-09-13 11:41 | XMS_ITS | Data Portability ---
Author Organization [place] [facility], Main Office Address [address] [place] [address] Assessment Encounter Date Assessment Date Assessment LastModified by Organization Details LastModified Time 09/04/2022 09/04/2022 pt did not complete labs yet [email or web address] Not available 09/04/2022 14:34:35 Plan of Treatment Reminders Order Date Submit Date Provider Last Modified By Organization Details Last Modified Time Details Appointments None recorded. Lab HbA1c (hemoglobin A1c), blood 2022 023 [email or web address] 4 [facility], [address], [address], [place], [address], 4 11:05:12 insulin, serum 2022 023 [email or web address] 4 [facility], [address], [address], [place], [address], 4 11:05:12 lipid panel, serum 2022 023 [email or web address] 4 [facility], [address], [address], [place], [address], 11:05:13 CMP, serum or plasma 2022 023 [email or web address] 4 [facility], [address], [address], [place], [address], 4 11:05:13 CBC w/ auto diff 2022 023 [email or web address] 4 [facility], [address], [address], [place], [address], 01/22/202 4 11:05:13 TSH + free T4, serum 2022 023 [email or web address] 4 [facility], [address], [address], [place], [address], 4 11:05:13 vitamin D, 25-hydroxy, total, serum 2022 023 [email or web address] 4 [facility], [address], [address], [place], [address], 4 11:05:13 Referral None recorded. Procedures None recorded. Surgeries None recorded. Imaging None recorded. Medication Orders phentermine 37.5 mg tablet 2022 023 [facility], [address] [place] [address], [address], 3 14:34:17 amoxicillin 875 mg-potassiu m clavulanate 125 mg tablet 2022 023 [email or web address] [facility] #[id number], [address], [place], [place], [id number], 3 13:26:23 Medrol (Rinku) 4 mg tablets in a dose pack 2022 023 [email or web address] 4 [facility] #[id number], [address], [place], [place], [id number], 3 10:19:50 cyclobenzap rine 10 mg tablet 2022 023 [email or web address] 4 [facility] #[id number], [address], [place], [place], [id number], 3 14:12:56 phentermine 37.5 mg tablet 2022 023 [email or web address] 4 [facility], [address] [place] [address], [address], 14:13:10 Patient TargetsNo targets recorded. Patient InstructionsNo instructions recorded. Reason for Referral None Reported. Results Created Date Observation Date Name Description Value Unit Range Abnormal Flag Note LastModifiedBy Organization Detail LastModifiedTime 05/02/19 21 05/02/2020 magne sium, serum or plasm a magnesium 2.0 mg/dL 1.6-2. 3 Not Available [facility] ([facility]) [address], [place], [address], 05/05/2020 14:09:56 05/02/19 21 05/02/2020 vitam in D, 25-hy droxy , total , serum vitamin D, 25-hydroxy 25.1 NG/mL 30.0-1 00.0 below low normal Vitam in D defic iency has been defin ed by the Insti tute of Medic ine and an Endoc rine Socie ty pract ice guide line as a level of serum 25-OH vitam in D less than 20 ng/mL (1,2) . The Endoc rine Socie ty went on to furth er defin e vitam in D insuf ficie ncy as a level betwe en 21 and 29 ng/mL (2). 1. IOM (Inst itute of Medic ine). 2009. Dieta ry refer ence intak es for calci um and D. Haseeb richey [place]: [facility] . 2. Savanna venegas [place], Farhat wright [place], Sudeep off-F errar i BENAVIDES, et al. Evalu ation , treat ment, and preve ntion of vitam in D defic iency : an Endoc rine Socie ty clini stephania pract ice guide line. JCEM. 2010; 96(7) :1911 -30. Not Available [facility] ([facility]) [address], [place], [address], 05/05/2020 14:09:55 05/02/19 21 05/05/2020 vitam in B6 (pyri doxin e), plasm a vitamin B6 9.0 ug/L 2.0-32 .8 Not Available [facility] ([facility]) [address], [place], [address], 05/05/2020 14:09:55 05/02/19 21 05/02/2020 vitam in B12 + folat e, serum or blood folate (folic acid), serum 8.0 NG/mL >3.0 A serum folat e levon ntrat ion of less than 3.1 ng/mL is consi dered to repre sent clini stephania defic iency . Not Available [facility] ([facility]) [address] [facility], [place], [address], 05/05/2020 14:09:55 05/02/19 21 05/02/2020 vitam in B12 + folat e, serum or blood vitamin B12 387 pg/mL 232-12 45 Not Available [facility] ([facility]) [address] [place], [address], 05/05/2020 14:09:55 05/02/19 21 05/02/2020 TSH + free T4, serum TSH 2.330 uIU/m L 0.450- 4.500 Not Available [facility] ([facility]) [address] [facility], [place], [address], 05/05/2020 14:09:54 05/02/19 21 05/02/2020 TSH + free T4, serum T4,free(dire ct) 0.93 NG/dL 0.82-1 .77 Not Available [facility] ([facility]) [address], [place], [address], 05/05/2020 14:09:54 11/10/19 22 11/09/2021 COLOG UARD cologuard result reportable negati ve negati ve NEGAT CONOR TEST RESUL T. A negat conor Colog uard resul t indic ates a low likel ihood that a color ectal cance r (CRC) or advan christine adeno ma (angeline omato us polyp s with more advan christine pre-m align ant featu res) is prese nt. The [facility] e that a perso n with a negat conor Colog uard test has a color ectal cance r is less than 1 in 1500 (nega tive predi ctive value >99.9 %) or has an advan christine adeno ma is less than 5.3% (nega tive predi ctive value 94.7% ). These data are based on a prosp ectiv e cross -sect ional study of ,00 0 indiv idual s at [place] risk for color ectal cance r who were scree sd with both Colog uard and colon oscop y. (Earl Spencer. et al, N Engl J Med 2014; 370(1 4):12 86-12 97) The kanwal l value (refe rence range ) for this assay is negat conor. COLOG UARD RE-SC REENI NG RECOM MENDA TION: Perio dic color ectal cance r scree wilfredo is an impor tant part of preve ntive healt hcare for asymp tomat ic indiv idual s at [place] risk for color ectal cance r. Follo wing a negat conor Colog uard resul t, the Ameri can Cance r Socie ty and U.S. Multi -Soci ety Task Force scree wilfredo guide lines recom mend a Colog uard re-sc reeni ng inter tobias of 3 years . Refer ences : Ameri can Cance r Socie ty Guide line for Color ectal Cance r Scree wilfredo: https ://christiano w.can cer.o rg/ca ncer/ colon -rect al-ca ncer/ detec tion- diagn osis- stagi ng/ac s-rec ommen datio ns.ht ml.; William CALIXTO, Hayley RUBIN, Nicky PATRICIA, Color ectal Cance r Scree wilfredo: Recom menda tions for Physi cians and Patie nts from the U.S. Multi -Soci ety Task Force on Color ectal Cance r Scree wilfredo , Say colon rolog y 2017; 112:1 016-1 030. TEST DESCR IPTIO N: [place] site algor ithmi c maureen sis of stool DNA-b iomar kers with hemog lobin immun oassa y. Quant itati ve value s of indiv idual bioma rkers are not repor table and are not assoc iated with indiv idual bioma rker resul t refer ence range s. Colog uard is inten ded for color ectal cance r scree wilfredo of adult s of eithe r sex, 45 years or older , who are at [facility] for color ectal cance r (CRC) . Colog uard has been appro moy for use by the U.S. FDA. The perfo rmanc e of Colog uard was estab lishe d in a cross secti onal study of [facility] adult s aged 50-84 . Colog uard perfo rmanc e in patie nts ages 45 to 49 years was estim ated by sub-g roup maureen sis of near- age group s. Colon oscop ies perfo rmed for a posit conor resul t may find as the most clini melba signi fican t lesio n: color ectal cance r [4.0% ], advan christine adeno ma (incl uding sessi le yang hero polyp s great er than or equal to 1cm diame ter) [20%] or non- advan christine adeno ma [31%] ; or no color ectal neopl unique [45%] . These estim ates are deriv ed from a prosp ectiv e cross -sect ional scree wilfredo study of ,00 0 indiv idual s at [facility] risk for color ectal cance r who were scree sd with both Colog uard and colon oscop y. (Earl Strong et al, N Engl J Med 2014; 370(1 4):12 86-12 97.) Colog uard may produ ce a false negat conor or false posit conor resul t (no color ectal cance r or preca ncero us polyp prese nt at colon oscop y follo w up). A negat conor Colog uard test resul t does not guara ntee the absen ce of CRC or advan christine adeno ma (pre- cance r). The curre nt Colog uard scree wilfredo inter tobias is every 3 years . ([place] Cance r Socie ty and U.S. Multi -Soci ety Task Force ). Colog uard perfo rmanc e data in a 10,00 0 patie nt pivot al study using colon oscop y as the refer ence metho d can be acces sed at the follo wing locat ion: www.e xactl abs.c om/re sults . Addit ional descr iptio n of the Colog uard test proce ss, warni ngs and preca ution s can be found at www.c desmondu verona.c om. Not Available [facility] (Cologuard Orders Only) [address], [place], [address], 11/13/2021 09:43:50 01/17/20 21 12/24/2020 XR, foot No observ ation record ed. [id number] Not Available 04/16/2022 08:13:32 10/05/19 22 09/13/2021 MAMMO , scree wilfredo, digit al, bilat eral No observ ation record ed. [id number] [facility] [address], [place], [address], 04/16/2022 08:13:32 Result Notes None recorded. Problems Name Problem SNOMED Code Status Onset Date Resolution Date Notes Provider Name and Address Organization Details Recorded Time Depressive disorder 18745571 Active Not Available [facility] 3 08:09:36 Anxiety 72807585 Active Not Available [facility] 3 08:09:36 Excessive sweating 83036720 Active Not Available [facility] 3 08:09:36 Palpitations 21476936 Active Not Available [facility] 3 08:09:36 Numbness 39798873 Active 2016 Not Available [facility] 3 08:09:36 Paresthesia of upper limb 20161715 Active 2016 Not Available [facility] 3 08:09:37 Seasonal allergic rhinitis 420021267 Active 2017 Not Available [facility] 3 08:09:36 Family history of stenosis of aortic valve 692973428 Active 2017 Not Available [facility] 3 08:09:36 Dizziness 558261863 Active 2018 Not Available [facility] 3 08:09:36 Obese 774972807 Active 2018 Not Available [facility] 3 08:09:36 Fatigue 27358470 Active 2018 Not Available [facility] 3 08:09:37 Hyperlipidemi a 63837997 Active 2018 Not Available [facility] 3 08:09:36 Hyperglycemia 11028051 Active 2018 Not Available [facility] 3 08:09:37 Generalized anxiety disorder 17521416 Active 2019 Not Available [facility] 3 08:09:36 Seasonal allergy 009226549 Active 2019 Not Available [facility] 3 08:09:36 Acid reflux 144462847 Active 2020 Not Available [facility] 3 08:09:36 Weight gain 7587960 Active 2021 Not Available [facility] 3 08:09:37 Prolactin level above reference range 075072229 Active 2021 Not Available [facility] 3 08:09:35 Serum creatinine above reference range 894477780 Active 2021 Not Available [facility] 3 08:09:36 Impaired glucose tolerance 4556867 Active 2022 MAURILIO Desir [address], [place] [address], [place], [address] , [employer] [facility] 3 16:28:54 Vitamin D deficiency 92419093 Active 2022 MAURILIO Desir [address], [facility] [address], [place], [address] , [employer] [facility] 3 16:29:09 Acute low back pain 032079558 Active 2022 MAURILIO Desir [address] [facility], [address], [place], [address] , [employer] 3 16:30:01 Acute left otitis media 111012591 Active 2022 MAURILIO Desir [address], [facility] [address], [place], [address] , [employer] 3 11:12:02 Pain of ear 770387431 Active 2022 MAURILIO Desir [address], [facility] [address], [place], [address] , [employer] 3 12:45:41 Problem Notes None recorded. Procedures Surgical History Date Name Laterality Status Provider Name and Address Organization Details Recorded Time 02/16/19 15 Date of Last Colonoscopy completed Not Available [facility] 04/16/2022 08:06:17 tonsilectomy/ad enoids completed Not Available [facility] 04/16/2022 08:06:18 section completed Not Available [facility] 04/16/2022 08:06:18 section completed Not Available [facility] 04/16/2022 08:06:18 Imaging Results None recorded. Procedure Notes None recorded. Medical Equipment None Reported. Allergies Allergen ID Allergen Name Allergen Category Reaction Reaction Severity Criticality Documentation Date Start Date Code Code System Note Provider Name and Address Organization Details Recorded Time Naprosyn medicatio n Not available Not available Not available 04/16/2022 2 RxNorm Not Available [facility] 3 08:13:24 Medications Name Sig Start Date Stop Date Status Note LastModified by Organization Details LastModified Time cyclobenz aprine 10 mg tablet TAKE 1 TABLET BY MOUTH THREE TIMES DAILY NEEDED 09/04 completed Not Available Not Available Not Available buspirone 5 mg tablet TK 1 T PO BID active Not Available Not Available No t Available nystatin 100,000 unit/mL oral suspensio n SHAKE LIQUID AND TAKE 5 ML BY MOUTH FOUR TIMES DAILY DIRECTED active Not Available Not Available No t Available prednison e 10 mg tablet 08/06 completed Not Available Not Available Not Available atorvasta tin 20 mg tablet TAKE 1 TABLET DAILY 2022 active Not Available Not Available Not Avai lable Zyrtec-D 5 mg-120 mg tablet,ex tended release Take 1 tablet every 12 hours by oral route PRN active Not Available Not Available No t Available esterifie d estrogens -methylte stosteron e 0.625 mg-1.25 mg tablet TAKE 1 TABLET BY MOUTH DAILY 06/24 completed Not Available Not Available Not Available cetirizin e 10 mg tablet Take 1 tablet every day by oral route. active Not Available Not Available No t Available atorvasta tin 10 mg tablet 1 tab po nightly. 04/27 completed Not Available Not Available Not Available famotidin e 40 mg tablet TAKE 1 TABLET DAILY IN THE MORNING active Not Available Not Available No t Available phentermi ne 37.5 mg tablet Take 1 tablet every day by oral route in the morning. 2022 active Not Available Not Available Not Avai lable cephalexi n 500 mg capsule TAKE ONE CAPSULE BY MOUTH TWICE DAILY FOR 5 DAYS 08/06 completed Not Available Not Available Not Available triamcino lone acetonide 0.1 % topical ointment APPLY TOPICALL Y TO THE AFFECTED AREA TWICE DAILY 08/06 completed Not Available Not Available Not Available progester one micronize d 200 mg capsule TAKE 1 CAPSULE BY MOUTH EVERY DAY AT BEDTIME 06/24 completed Not Available Not Available Not Available fluoxetin e 10 mg capsule Take 1 capsule every day by oral route. active Not Available Not Available No t Available buspirone 7.5 mg tablet Take 1 tablet twice a day by oral route. active Not Available Not Available No t Available ibuprofen 600 mg tablet TAKE 1 TABLET BY MOUTH THREE TIMES DAILY NEEDED FOR PAIN 08/06 completed Not Available Not Available Not Available estradiol 0.01% (0.1 mg/gram) vaginal cream INSERT 1 APPLICAT ORFUL VAGINALL Y 2 TIMES A WEEK FOR 8 WEEKS 06/24 completed Not Available Not Available Not Available methylpre dnisolone 4 mg tablets in a dose pack FOLLOW PACKAGE DIRECTIO NS STARTING 06/25/2209/03 completed Not Available Not Available Not Available fluticaso ne propionat e 50 mcg/actua tion nasal spray,tika pension 04/30 completed Allergis t. Not Available Not Available Not Available amoxicill in 875 mg-potass ium clavulana te 125 mg tablet TAKE 1 TABLET BY MOUTH EVERY 12 HOURS FOR 10 DAYS 12/23 completed Not Available Not Available Not Available escitalop anthony 10 mg tablet Take 1 tablet every day by oral route. 04/30 completed Not Available Not Available Not Available escitalop anthony 20 mg tablet TAKE 1 TABLET DAILY 2022 active Not Available Not Available Not Avai lable Premarin 0.625 mg/gram vaginal cream active Not Available Not Available Not Available ciproflox acin 0.3 %-dexamet hasone 0.1 % ear drops,tika pension SHAKE LIQUID AND INSTILL 4 DROPS TO AFFECTED EAR TWICE DAILY FOR 7 DAYS active Not Available Not Available No t Available Lexapro 5 mg tablet Take 1 tablet every day by oral route. active Not Available Not Available No t Available Zyrtec-D 1 PO QD 04/30 completed OTC only if sinus infectio n. Regular zyrtec if no sinus infectio n. Not Available Not Available Not Available Lexapro 09/16 completed Not Available Not Available Not Available Lo Loestrin Fe 1 mg-10 mcg (24)/10 mcg (2) tablet FPD active Not Available Not Available Not Available Afluria Qd 2019- (36 mos up)(PF)60 mcg (15 mcg x4)/0.5 mL IM syringe ADM 0.5ML IM UTD 04/27 completed Not Available Not Available Not Available Vitals Date Recorded Body mass index (BMI) Body height Oxygen saturation Oxygen saturation in Arterial blood by Pulse oximetry Heart rate Respiratory rate Body temperature Body weight Systolic And Diastolic Provider Name and Address Organization Details Last Updated DateTime 1 40.1 kg/m2 160.02 cm 98 % 98 % 83 /min 16 /min 97.8 [degF] 648388. 03 g 122/82 mm[Hg] Not Available [facility] 3 08:08:08 Date Recorded Body height Body temperature Body mass index (BMI) Body weight Respiratory rate Oxygen saturation Oxygen saturation in Arterial blood by Pulse oximetry Heart rate Systolic And Diastolic Provider Name and Address Organization Details Last Updated DateTime 3 160.02 cm 98.4 [degF] 43.8 kg/m2 746013. 32 g 16 /min 97 % 97 % 82 /min 122/78 mm[Hg] JOSEPH Shelton [facility] [employer] [facility] 3 15:52:07 Date Recorded Body mass index (BMI) Body height Oxygen saturation Oxygen saturation in Arterial blood by Pulse oximetry Heart rate Respiratory rate Body temperature Body weight Systolic And Diastolic Provider Name and Address Organization Details Last Updated DateTime 2 43.1 kg/m2 160.02 cm 98 % 98 % 87 /min 16 /min 98 [degF] 367341. 66 g 120/78 mm[Hg] Not Available [facility] 3 08:08:08 Date Recorded Systolic And Diastolic Provider Name and Address Organization Details Last Updated DateTime 09/04/2022 108/80 mm[Hg] MAURILIO Desir [address] [place] [address], [facility] [address], [place], [address], [facility] 09/04/2022 14:34:48 Date Recorded Body height Body temperature Body mass index (BMI) Body weight Respiratory rate Oxygen saturation Oxygen saturation in Arterial blood by Pulse oximetry Heart rate Systolic And Diastolic Provider Name and Address Organization Details Last Updated DateTime 3 160.02 cm 98 [degF] 43.2 kg/m2 804881. 54 g 16 /min 97 % 97 % 99 /min 122/82 mm[Hg] JOSEPH Shelton [facility] [employer] [facility] 3 14:14:08 Social History Question Answer Notes LastModified by Organizat ion Details LastModified Time Tobacco Smoking Status Former Smoker Not Available [facility] 04/16/2022 08:06:07 What Is Your Level Of Caffeine Consumption? Moderate [id number] Information not available 04/16/2022 How Much Tobacco Do You Chew? None [id number] Information not available 04/16/2022 In The 14 Days Before Symptom Onset, Have You Had Close Contact With A Laboratory-confirm ed COVID-19 While That Case Was Ill? No [id number] Information not available 04/16/2022 In The 14 Days Before Symptom Onset, Have You Had Close Contact With A Person Who Is Under Investigation For COVID-19 While That Person Was Ill? No [id number] Information not available 04/16/2022 What Type Of Diet Are You Following? REGULAR [id number] Information not available 04/16/2022 Which Illicit Or Recreational Drugs Have You Used? None [id number] Information not available 04/16/2022 Have There Been Any Changes To Your Family Or Social Situation? No [id number] Information not available 04/16/2022 Are There Any Guns Present In Your Home? Yes [id number] Information not available 04/16/2022 Do You Use Insect Repellent Routinely? No [email or web address] Information not available 06/23/2022 What Is Your Relationship Status? [id number] Information not available 04/16/2022 Do You Use Your Seat Belt Or Car Seat Routinely? Yes [id number] Information not available 04/16/2022 Do You Have Smoke And Carbon Monoxide Detectors In Your Home? Yes [id number] Information not available 04/16/2022 Do You Use Sunscreen Routinely? Yes [email or web address] Information not available 06/23/2022 Have You Recently Traveled Abroad? No [id number].[id number] Information not available 04/16/2022 Do You Have Any Dietary Restrictions? No [id number].[id number] Information not available 04/16/2022 Sex: Unknown Functional Status Question Answer Note LastModified by Organizat ion Details LastModified Time Do you use any illicit or recreational drugs? No [id number] Information not available 04/16/2022 Do you or have you ever used any other forms of tobacco or nicotine? No [id number] Information not available 04/16/2022 What is your level of alcohol consumption? Occasional [id number].[id number] Information not available 04/16/2022 Are you currently employed? 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 Occasional [id number] Information not available 04/16/2022 Mental Status None recorded. Family History Relationship Description Onset Age of this Age Resolved Age Notes LastModified by Organization Details LastModified Time Father Cerebrovascu lar accident [id number] Not available 04/16/2022 08:06:20 Father Diabetes mellitus [id number] Not available 04/16/2022 08:06:20 Father Hypertensive disorder [id number] Not available 04/16/2022 08:06:20 Brother Hypertensive disorder [id number] Not available 04/16/2022 08:06:20 Mother Hypertensive disorder [id number] Not available 04/16/2022 08:06:20 Medical History Condition Response BLINDNESS N NERVE DISEASE N RHEUMATIC FEVER N BLADDER PROBLEMS N KIDNEY STONES N OTHER # 1 N POLIO N LUNG DISEASE/DISORDER N RADIATION / CHEMOTHERAPY N COPD N Other # 2 N BLOOD DISEASES N SURGERY N EAR OR HEARING PROBLEMS N MUMPS N DEPRESSION (INCLUDING POST ) N BOWEL PROBLEMS N STROKE/TIA N ULCERS N BENIGN PROSTATIC HYPERPLASIA N MEASLES N MYOCARDIAL INFARCTION N OBESITY Y GERD/NAUSEA Y ANEURYSM N URINARY/BLADDER/KIDNEY PROBLEMS N INPATIENT PSYCH CARE N CORONARY ARTERY DISEASE (CAD) N ADDICTION CONCERNS N ENDOMETRIOSIS N Impotence N USE OF BLOOD THINNERS N SKIN PROBLEMS N GASTROINTESTINAL DISORDER N PERIPHERAL VASCULAR DISEASE N MUSCLE,JOINT OR BONE PROBLEMS N GASTROINTESTINAL BLEEDING N BLOOD CLOTS N ASTHMA N CATARACTS N ERECTILE DYSFUNCTION N VARICOSITIES N GI PROBLEMS N Low Testosterone N INFERTILITY N AIDS/HIV N LIVER DISEASE N MALE HYPOGONADISM N HYPERTENSION N Deficiency N ANXIETY DISORDER Y BLOOD TRANSFUSION N ANEMIA/BLOOD DISORDER N CHRONIC EAR INFECTIONS N BRONCHITIS N TUBERCULOSIS N GLAUCOMA N FOOT PROBLEM N DIVERTICULITIS N SLEEP APNEA N CHICKENPOX N INFECTIOUS DISEASE N HEART ARRHYTHMIA N PROSTATE N INSOMNIA N HIGH CHOLESTEROL / HYPERLIPIDEMIA Y HYPERTHYROIDISM N EYE PROBLEMS N NEUROLOGICAL PROBLEMS N EDEMA N CHRONIC PAIN SYNDROME N HYPOTHYROIDISM N CAROTID BLOCKAGE N CONSTIPATION N BACK / NECK PROBLEMS N HAVE YOU BEEN HOSPITALIZED OR SEEN IN [facility] IN THE PAST YEAR ? N ATHEROSCLEROSIS N BREAST PROBLEMS N DIALYSIS N ECZEMA N OSTEOPOROSIS N ARTHRITIS N NO SIGNIFICANT PAST MEDICAL HISTORY N APPENDICITIS N DIABETES, TYPE N BAD TEETH N ENT Y HEARTBURN / REFLUX N AUTISM SPECTRUM DISORDER (ASD) N HEPATITIS / LIVER DISEASE N PULMONARY DISEASE N GOUT N SLEEP DISORDER N ALZHEIMER'S DISEASE N Brain Problems N HERPES N DEMENTIA N HEADACHES/MIGRAINES N SEIZURES/EPILEPSY N VASCULAR DISEASE N PACEMAKER N Blood Disorder N DIZZINESS Y HEART DISEASE/HEART PROBLEMS N KIDNEY DISEASE N MULTIPLE SCLEROSIS N CARDIAC ARRHYTHMIA N CANCER: SPECIFY N ANESTHESIA COMPLICATIONS N ATRIAL FIBRILLATION N Gall Stones N PULMONARY EMBOLISM N AUTOIMMUNE DISEASE N Gynecological History Statement/Question Response How many live births 2 Date of Last Mammogram 11/02/2019 Date of Last Colonoscopy 02/16/2014 Menses Monthly N Date of Last Pap 08/16/2017 Current Control Method BCPs Obstetrics History GPAL:G 2 P 0 0 0 2 Type Value Living 2 Total 2 Immunizations Vaccine Type Date Status Note Provider Nam e and Address Organization Details Recorded Time Influenza, split virus, quadrivalent, preservative 0 completed Not Available [facility] 04/16/2022 08:13:17 DTaP 9 completed Not Available [facility] 04/16/2022 08:13:17 Influenza, split virus, quadrivalent, PF 7 completed Not Available [facility] 04/16/2022 08:13:17 Influenza, split virus, trivalent, preservative 4 completed Not Available [facility] 04/16/2022 08:13:17 Influenza, split virus, quadrivalent, preservative 5 completed Not Available [facility] hospital 04/16/2022 08:13:17 Past Encounters Encounter ID Performer Location Encounter Start Date Encounter Closed Date Diagnosis/Indication Diagnosis SNOMED-CT Code Diagnosis ICD10 Code Diagnosis Note [id number] MAURILIO Desir [facility] [place] [address] [place] [address] 04/30/2020 00:00:00 05/16/2020 11:49:18 [id number] Kobi Lucero MD [facility] [place] [address] [place] [address] 08/06/2021 00:00:00 08/14/2021 01:15:21 [id number] MAURILIO Desir [facility] [place] [address] [place] [address] 06/24/2022 15:43:32 06/24/2022 16:31:13 Cholesterol screening 256766408 Z13.220 fasting lipids are also due Impaired g lucose tolerance 3233999 R73.03 pt is due for a1c and insulin screening. labs and office f/u are overdue Long-term drug therapy 934396033 Z79.899 all routine annual labs are due Vitamin D deficiency 347 30745 E55.9 screening vit d requested Acute low back pain 2788 38511 M54.50 start MDP and flexeril 10mg tid PRN Body mass index 40+ - severely obese 067883685 Z68.41 pt would like to try phentermin e course again [id number] MAURILIO Desir [facility] [place] [address] [place] [address] 09/04/2022 13:57:16 09/04/2022 14:45:04 Adult health examination 981252922 Z00.01 well exam completed Body mass index 40+ - severely obese 734101214 Z68.41 pt would like to try phentermin e course again Hyperlipidemia 61217751 E78.5 pt is on statin therapy. still to complete labs that she has an order for. Acid reflux 109597218 K2 1.9 stable on famotidine 40mg daily. Obese 441862093 E66.9 pt will start phentermin e course. Acute left otitis media 654740191 H66.92 start augmentin course. Long-term drug therapy 404404960 Z79.899 all routine annual labs are due Health Concerns Section Related Observation LastModified by Organization Detai ls LastModified Time None Recorded Concern Status LastModified by Organization Details LastModified Time None Recorded Advance Directives Directive None Recorded Payers Insurance Date Sequence Insurance Name Policy Number Policy Han Covered Member ID Han Member ID Guarantor Name 09/15/2022 1 [facility] [id number] Pippa Prabhakar [id number] Pippa Prabhakar OBGyn Episode No OBEpisode recorded.
--- OUTSIDE RECORDS SUMMARY | 2024-09-13 11:41 | XMS_ITS | Continuity of Care Document ---
Author Organization [facility] Address [address] [place] [address] Phone Care Team Providers Care Restaurant Recruiter Name Role Phone Doser Dequan HERNANDEZ DPM Unavailable Unavailab le Allergies, Adverse Reactions, Alerts Substance Reaction Status Criticality No Known Allergies Active No Inform ation Procedures Procedure Date X-ray exam ankle, minimum 3 views [place] [facility] [place] ASO Lace Up Ankle Stabilizer Office/[place] visit,[place], [facility] [place] Clsd Tx Distal Fib Fx Walking Boot With Air Advance Directives Directive Yes / No Effective Date File Name No Information Encounters Encounter Description Practice Location Reason(s) For Visit Diagnoses Date Provider Providers Copied on Encounter Office/outpat [place], [facility], [address], [id number], tel:[phone] [facility] Follow Up of right ankle (chief complaint) Pain in right footFx of right ankle, initial encounter for closed fxPain in right ankle Doser DAVID Baires. [address] [place] [address], [place], [place], [id number], [place]. tel:[phone] Office/outpat ient visit,new, [employer] [facility], [address] [place] [address], [id number], [place] tel:[phone] [facility] Fracture Right Ankle (chief complaint) Pain in right footPain in right ankleFx of right ankle, initial encounter for closed fx Doser DAVID Baires. [address], [address], [place], [place], [id number], [place]. tel:[phone] Family History Family Member Type Diagnosis Age At Onset Father Problem (finding) Depression Mother Problem (finding) Heart Disease Father Problem (finding) Heart Disease Brother Problem (finding) Hypertension Mother Problem (finding) Osteoarthritis Father Problem (finding) Stroke Father Problem (finding) Diabetes Father Problem (finding) Gout Mother Problem (finding) Hypertension Father Problem (finding) Hypertension Mother Problem (finding) Depression Payers Payer name Insurance type Covered democrat ID Darien freitas(s) [facility] [id number] Social History Type Description Quantity Date Captured Comments Alcohol Use Details Unknown Caffeine Use Details Unknown Tobacco Use Status No Information Smoking Status Former smoker Sex Female Chief Complaint And Reason For Visit From encounter dated '12/12/2021 13:15'. Follow Up of right ankle (chief complaint) Reason For Referral Reason For Referral No Information Plan Of Treatment Date Type Action Status Referral Ordered: X-ray exam ankle, minimum 3 views RT ordered History Of Present Illness Encounter Date Complaint History Of Prese nt Illness Follow Up of right ankle Fracture Right Ankle Functional Status Date Functional Assessmen t No Information Instructions Date Instruction Additional Infor mation No Information Assessments Type Assessment Date assessment Pain in right foot assessment Fx of right ankle, initial encou nter for closed fx assessment Pain in right ankle Patient Care Teams Name Effective Dates (start - stop) Status Members No Information
--- OUTSIDE RECORDS SUMMARY | 2024-09-13 11:41 | XMS_ITS | Referral Summary ---
Author Organization [facility] Address [address] [place] [id number] Care Team Providers Care Catering Truck Operator Name Role Phone Rodger Nataliia Annie CONSULTING GROUP ANALYST Primary Care Provider + Allergies Active Allergy Reactions Criticality Noted Date Comments Naproxen Swelling Medium 10/20/2017 throat Medications cetirizine (ZyrTEC) 10 mg tablet 10/10/2017 Active escitalopram (LEXAPRO) 10 mg tablet 07/30/2017 Active LO LOESTRIN FE 1 mg-10 mcg (24)/10 mcg (2) tablet 07/30/2017 Acti ve Active Problems Problem Noted Date Diagnosed Date Palpitations 11/13/2017 Assessment & Plan (11/13/2017 4:48 PM CDT): Palpitations are occurring only every three weeks or so, and last only a second. This is consistent with single PVCs. Given that her recent echocardiogram is unremarkable, and that she has previously had a benign Holter monitor for palpitations, unless these become more frequent, no further evaluation is needed. She was reassured that these are benign. Morbid obesity with BMI of 40.0-44.9, adult 10/18 Assessment & Plan (11/13/2017 4:48 PM CDT): Weight loss through diet and exercise recommended. 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 Gender Identity Not on file Sexual Orientation Not on file Last Filed Vital Signs Vital Sign Reading Time Taken Comments Blood Pressure 130/82 10/20/2017 12:12 PM CDT Pulse 84 10/20/2017 12:12 PM CDT Temperature - - Respiratory Rate - - Oxygen Saturation - - Inhaled Oxygen Concentration - - Weight 103.9 kg (229 lb) 10/20/2017 12:12 PM CDT Height 160 cm (5' 3) 10/20/2017 12:12 PM CDT Body Mass Index 40.57 10/20/2017 12:12 PM CDT Plan of Treatment Not on file Insurance [facility] HMO/PPO Address: [facility] [id number] [place] [address] [facility] CHOICE PLUS [facility] HMO/PPO Address: [address] [place] [address] Care Teams Catering Truck Operator Relationship Specialty Start Date End Date Nataliia Soares NP PCP - General Nurse Practitioner 09/17/17
--- OUTSIDE RECORDS SUMMARY | 2024-09-13 11:41 | XMS_ITS | Clinical Summary ---
Author Organization [facility] Address [address] [place] [phone] Care Team Providers Care Child Care Group Leader Name Role Phone Rodger, Nataliia Annie TUMBLER PLATER Primary Care Provider + Allergies Active Allergy [...] Weight loss through diet and exercise recommended. 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
== END 2024-09-13 11:35 | disposition home or self-care (01) ==
PROVIDERS: PCP Physician Assistant; Visit Provider Obstetrics & Gynecology
DX: R93.89 Abnormal findings on diagnostic imaging of other specified body structures (principal)
CPT/HCPCS: 76830; 76856

== ENCOUNTER 2025-01-19 15:59 | Outpatient (CLI) | payer OTHER, SELFPAY ==
--- NOTE | ~2025-01-19 | MM_ITS ---
EXAMINATION: MM screening willi BI w elsie HISTORY: Screening. TECHNIQUE: Craniocaudal and mediolateral oblique 3-D tomosynthesis images were obtained and synthetic 2-D images were generated. CAD analysis was submitted and interpreted. COMPARISON: 2023, 2021, and 2019. BREAST PARENCHYMAL COMPOSITION: Not Dense: The breasts are almost entirely fatty FINDINGS: No suspicious masses are seen. There are no suspicious calcifications. No unexplained architectural distortion is seen. There are no skin or nipple abnormalities identified. There is no adenopathy seen on the images submitted. IMPRESSION: No mammographic evidence to suggest malignancy is seen. The patient may return to screening mammography as per ACR guidelines. BI-RADS 1 - Negative. Reviewed, dictated and finalized at location C. MANAGER [employer]
== END 2025-01-19 16:00 | disposition home or self-care (01) ==
LOC: ANHFOHIMG 16:00
PROVIDERS: PCP Physician Assistant; Visit Provider Obstetrics & Gynecology
DX: Z12.31 Encounter for screening mammogram for malignant neoplasm of breast (principal)
CPT/HCPCS: 77063; 77067